=== PATIENT | female | born 1960 | race Caucasian/White ===

== ENCOUNTER 2017-08-29 07:46 | Day surgery (SDC) | payer BC ==
[~2017-08-29 07:46] MED LIST: CEFAZOLIN 2 GM/50 ML (PMX) 50 ML IVPB
[2017-08-29] MEDS ORDERED: PROPOFOL 20 ML (09:33)
[2017-08-29] MEDS ORDERED: CEFAZOLIN 1 GM INJ (09:33)
[2017-08-29] MEDS ORDERED: ONDANSETRON 4 MG INJ ×2 (09:34→11:45)
[2017-08-29] MEDS ORDERED: ROPIVACAINE 0.5 % 30 ML VIAL (09:34)
[2017-08-29] MEDS ORDERED: METOCLOPRAMIDE 10 MG INJ (09:34)
[2017-08-29] MEDS ORDERED: MIDAZOLAM 1 MG/ML 2 ML INJ (09:34)
[2017-08-29] MEDS ORDERED: KETOROLAC 30 MG INJ (09:35)
[2017-08-29] MEDS ORDERED: FENTAnyl 50 MCG/ML VIAL ×2 (09:36→10:54)
[2017-08-29] MEDS ORDERED: BUPIVACAINE 0.25% (MPF) 30 ML INJ (09:43)
[2017-08-29] MEDS ORDERED: LIDOCAINE 2% (MDV) 20 ML INJ (09:43)
[2017-08-29] MEDS: POLYMYXIN/BACITRACIN 1L IRRIG (10:23)
[2017-08-29] MEDS ORDERED: HYDROmorphONE (0.2 MG/ML) 10ML SYG IV ×3 (11:30)
[2017-08-29] MEDS ORDERED: MIDAZOLAM 1 MG/ML 2 ML INJ IV (11:30)
[2017-08-29] MEDS ORDERED: DIPHENHYDRAMINE 50 MG INJ IV (11:30)
[2017-08-29] MEDS ORDERED: OXYCODONE/ACETAMINOPHEN (5/325) TAB PO (11:30)
[2017-08-29] MEDS ORDERED: MEPERIDINE 25 MG INJ IV (11:30)
[2017-08-29] MEDS ORDERED: OXYCODONE/ACETAMINOPHEN (5/325) TAB (11:45)
[2017-08-29] MEDS: ONDANSETRON 4 MG INJ IV (12:34)
[2017-08-29] MEDS: OXYCODONE/ACETAMINOPHEN (5/325) TAB PO (12:34)
== END 2017-08-29 14:20 | disposition home or self-care (01) ==
LOC: SDS 07:46
DX: M20.22 Hallux rigidus, left foot (principal); M20.42 Other hammer toe(s) (acquired), left foot; F17.200 Nicotine dependence, unspecified, uncomplicated
CPT/HCPCS: 28291; 73630-LT; 88304; 88311

== ENCOUNTER 2018-06-26 06:11 | Day surgery (SDC) | payer BC ==
[2018-06-26] MEDS ORDERED: EPHEDrine SULFATE 50 MG/5 ML SYG (07:00)
[2018-06-26] MEDS ORDERED: CEFAZOLIN 1 GM INJ (07:00)
[2018-06-26] MEDS ORDERED: HYDROmorphONE 1 MG/5 ML IV SYRINGE IV (07:30)
[2018-06-26] MEDS ORDERED: OXYCODONE/ACETAMINOPHEN (5/325) TAB PO ×2 (07:30)
[2018-06-26] MEDS ORDERED: DIPHENHYDRAMINE 50 MG INJ IV (07:30)
[2018-06-26] MEDS ORDERED: ONDANSETRON 4 MG INJ IV (07:30)
[2018-06-26] MEDS ORDERED: PROPOFOL 20 ML (07:38)
[2018-06-26] MEDS ORDERED: MIDAZOLAM 1 MG/ML 2 ML INJ (07:38)
[2018-06-26] MEDS ORDERED: METOCLOPRAMIDE 10 MG INJ (07:39)
[2018-06-26] MEDS ORDERED: ONDANSETRON 4 MG INJ (07:39)
[2018-06-26] MEDS ORDERED: ROPIVACAINE 0.5 % 30 ML VIAL (07:39)
[2018-06-26] MEDS ORDERED: FENTAnyl 50 MCG/ML VIAL (07:39)
[2018-06-26] MEDS ORDERED: KETOROLAC 30 MG INJ (07:39)
[2018-06-26] MEDS: POLYMYXIN/BACITRACIN 1L IRRIG (08:51)
[2018-06-26] MEDS: HYDROmorphONE 1 MG/5 ML IV SYRINGE IV ×3 (09:32→10:03)
[2018-06-26] MEDS: MEPERIDINE 25 MG INJ IV (09:32)
== END 2018-06-26 11:41 | disposition home or self-care (01) ==
LOC: SDS 06:11
DX: T84.84XA Pain due to internal orthopedic prosthetic devices, implants and grafts, initial encounter (principal); Y79.3 Surgical instruments, materials and orthopedic devices (including sutures) associated with adverse incidents
CPT/HCPCS: 28750; 73630-LT; 88304; 88311